=== PATIENT | female | born 1995 | race Two or more races ===

== ENCOUNTER 2018-07-04 07:12 | Observation (INO) | payer OTHER ==
[2018-07-04] MEDS ORDERED: IV RINGERS,LACTATED 1000ML 1,000 ML IV PRN (08:00)
== END 2018-07-04 08:37 | disposition left against medical advice (07) ==
LOC: 3 SO LND 07:12
PROVIDERS: ADMIT Obstetrics & Gynecology; ATTEND Obstetrics & Gynecology
DX: O62.9 Abnormality of forces of labor, unspecified (principal); Z3A.30 30 weeks gestation of pregnancy
CPT/HCPCS: G0378; G0379